=== PATIENT | male | born 1995 | race Caucasian/White ===

== ENCOUNTER → 2019-08-28 08:31 | Outpatient (CLI) | payer BC ==
--- NOTE | ~2019-08-28 | ST ---
PATIENT:GRICEL JAMES MEDICAL RECORD: [id number] SEX: M LOCATION:[facility] ORDER #: ADMISSION DATE: 08/28/19 AGE OF PATIENT: 23 REFERRING PHYSICIAN: INTERPRETING PHYSICIAN: FAB FORTUNE MD DATE OF SERVICE: 08/28/2019 Treadmill Stress Test INDICATIONS: Chest pain, family history of coronary artery disease. He was exercised on standard Shan protocol for 9 minutes 30 seconds achieving 100% max target heart rate response with no EKG changes, no dysrhythmias, no angina. OVERALL IMPRESSION: Negative for inducible ischemia at adequate cardiac workload. TRANSINT:[id number] Voice Confirmation ID: [id number] DOCUMENT ID: [id number] FAB FORTUNE MD CC: [id number] DICTATION DATE: 08/30/19 1221 YARDER: 08/30/19 2245 [facility] CLI 08/28/19 [id number] [place] [address]
== END | disposition home or self-care (01) ==
LOC: D.HCCARDIO 08:31
PROVIDERS: ATTEND Internal Medicine Interventional Cardiology
DX: R07.9 Chest pain, unspecified (principal)